=== PATIENT | female | born 1990 | race Native Hawaiian/Other Pacific Islander ===

== ENCOUNTER 2017-02-05 18:32 | Emergency (ER) | payer OTHER ==
[~2017-02-05] VITALS: Ht 160 cm; Wt 49.9 kg
[~2017-02-05 18:32] MED LIST: METR250T19 PO
[2017-02-05 22:18] VITALS: BP 94/58; TEMP 98.1
== END 2017-02-05 22:23 | disposition home or self-care (01) ==
LOC: ED 18:32
DX: S16.1XXA Strain of muscle, fascia and tendon at neck level, initial encounter (principal); S40.022A Contusion of left upper arm, initial encounter; S50.02XA Contusion of left elbow, initial encounter; S50.12XA Contusion of left forearm, initial encounter; V43.52XA Car driver injured in collision with other type car in traffic accident, initial encounter; Y92.89 Other specified places as the place of occurrence of the external cause
CPT/HCPCS: 81025; 99283

== ENCOUNTER 2017-03-24 12:38 | Emergency (ER) | payer OTHER ==
[~2017-03-24] VITALS: Ht 160 cm; Wt 49.9 kg
[2017-03-24 15:10] VITALS: BP 101/62; TEMP 98.1
== END 2017-03-24 15:10 | disposition home or self-care (01) ==
LOC: ED 12:38
DX: S53.402A Unspecified sprain of left elbow, initial encounter (principal); M70.22 Olecranon bursitis, left elbow; X58.XXXA Exposure to other specified factors, initial encounter; Y92.098 Other place in other non-institutional residence as the place of occurrence of the external cause
CPT/HCPCS: 99282

== ENCOUNTER 2017-06-19 16:48 | Emergency (ER) | payer OTHER ==
[~2017-06-19] VITALS: Ht 160 cm; Wt 49.9 kg
[2017-06-19 18:41] LABS: PLATELET COUNT 186 K/uL (152-353)
[2017-06-19 19:31] VITALS: BP 101/53; TEMP 99.6
== END 2017-06-19 19:40 | disposition home or self-care (01) ==
LOC: ED 16:48
DX: R80.9 Proteinuria, unspecified (principal)
CPT/HCPCS: 36415; 81000; 85027; 99283

== ENCOUNTER 2019-08-03 21:58 | Emergency (ER) | payer OTHER ==
[~2019-08-03] VITALS: Ht 160 cm; Wt 53.1 kg
[2019-08-03 23:32] VITALS: BP 110/68; TEMP 98.2
== END 2019-08-03 23:32 | disposition home or self-care (01) ==
LOC: ED 21:58
DX: J02.9 Acute pharyngitis, unspecified (principal); F17.210 Nicotine dependence, cigarettes, uncomplicated
CPT/HCPCS: 87502; 87651; 96372; 99283; J0696

== ENCOUNTER 2023-02-02 08:00 | Outpatient (CLI) | payer OTHER | END 2023-02-02 19:10 | disposition home or self-care (01) | LOC: US 08:00 | PROVIDERS: ATTEND Internal Medicine | DX: R10.9 Unspecified abdominal pain (principal); R19.00 Intra-abdominal and pelvic swelling, mass and lump, unspecified site ==

== ENCOUNTER 2023-02-15 11:09 | Outpatient (CLI) | payer OTHER | END 2023-02-15 19:25 | disposition home or self-care (01) | LOC: RAD 11:09 | PROVIDERS: ATTEND Nurse Practitioner Family | DX: E55.9 Vitamin D deficiency, unspecified (principal); E56.8 Deficiency of other vitamins; M06.4 Inflammatory polyarthropathy; Z68.31 Body mass index [BMI] 31.0-31.9, adult ==